=== PATIENT | female | born 1980 | race Caucasian/White ===

== ENCOUNTER 2016-03-26 16:37 | Emergency (ER) | END 2016-03-26 21:15 | disposition home or self-care (01) | DX: S69.92XA Unspecified injury of left wrist, hand and finger(s), initial encounter (principal); I10 Essential (primary) hypertension; E11.9 Type 2 diabetes mellitus without complications; W18.2XXA Fall in (into) shower or empty bathtub, initial encounter; Y92.9 Unspecified place or not applicable; Z79.4 Long term (current) use of insulin | CPT/HCPCS: 29125; 73110; 73130; Z7502 ==

== ENCOUNTER 2016-05-17 09:02 | Emergency (ER) | payer BC ==
[~2016-05-17] VITALS: Wt 61.0 kg
[~2016-05-17 09:02] MED LIST: ACET325T33 PO; CIPR500T4 PO; CITA20TA11 PO; NAPR-260 PO; NOVO7030 SC
[2016-05-17] MEDS ORDERED: ONDANSETRON 4 MG INJ IV STA (09:35)
[2016-05-17] MEDS ORDERED: FAMOTIDINE 20 MG INJ IV STA (09:35)
[2016-05-17] MEDS ORDERED: SOD CHLORIDE 0.9% 1,000 ML IV STA (09:35)
[2016-05-17 10:00] LABS: ADD SCAN DIFF NO
[2016-05-17] MEDS ORDERED: DICYCLOMINE 10 MG CAP PO ONE (10:00)
[2016-05-17 10:03] LABS: BASOPHILS % 0.4 % (0.0-2.0); EOSINOPHILS # 0.1 10^3/ul (0.0-0.5); EOSINOPHILS % 1.2 % (0.0-7.0); HEMATOCRIT 36.1 % (37.0-47.0); HEMOGLOBIN 12.6 g/dl (12.0-16.0); LYMPHOCYTES # 1.8 10^3/ul (0.8-2.9); LYMPHOCYTES % 36.7 % (15.0-51.0); MEAN CORPUSCULAR HEMOGLOBIN 30.8 pg (29.0-33.0); MEAN CORPUSCULAR HGB CONC 34.9 g/dl (32.0-37.0); MEAN CORPUSCULAR VOLUME 88.3 fl (82.0-101.0); MEAN PLATELET VOLUME 9.2 fl (7.4-10.4); MONOCYTE # 0.5 10^3/ul (0.3-0.9); MONOCYTES % 9.8 % (0.0-11.0); NEUTROPHIL # 2.5 10^3/ul (1.6-7.5); NEUTROPHILS % 50.3 % (39.0-77.0); PLATELET COUNT 130 10^3/UL (140-415); RED BLOOD COUNT 4.09 10^6/ul (4.20-5.40); RED CELL DISTRIBUTION WIDTH 13.1 % (11.5-14.5)
[2016-05-17 10:06] LABS: ADD UMIC YES; URINE BILIRUBIN (Dip) NEGATIVE (NEGATIVE); URINE BLOOD (Dip) 2+ (NEGATIVE); URINE COLOR DK. BROWN (YELLOW); URINE GLUCOSE (Dip) >=1000 % (NEGATIVE); URINE KETONES (Dip) NEGATIVE (NEGATIVE); URINE LEUKOCYTE ESTERASE (Dip) NEGATIVE (NEGATIVE); URINE NITRITE (Dip) NEGATIVE (NEGATIVE); URINE TOTAL PROTEIN (Dip) TRACE (NEGATIVE); URINE UROBILINOGEN (Dip) 4.0 E.U./dL (0.1-1.0)
[2016-05-17 10:13] LABS: ALBUMIN 3.8 g/dl (3.3-4.9)
[2016-05-17 10:14] LABS: POTASSIUM 4.2 mmol/L (3.5-5.1)
[2016-05-17 10:16] LABS: ALBUMIN/GLOBULIN RATIO 1.65; BILIRUBIN,INDIRECT 0.9 mg/dl (0-1.1); BILIRUBIN,TOTAL 0.9 mg/dl (0.2-1.3); CREATININE 0.47 mg/dl (0.44-1.00); TOTAL PROTEIN 6.1 g/dl (6.1-8.1)
[2016-05-17 10:17] LABS: CALCIUM 8.6 mg/dl (8.4-10.2)
[2016-05-17 10:26] LABS: BACTERIA,URINE MODERATE
--- NOTE | 2016-05-17 11:03 | RADRPT ---
PROCEDURE: CT Abdomen and Pelvis without intravenous contrast. CLINICAL INDICATION: Abdominal Pain. TECHNIQUE: CT scan of the abdomen and pelvis without intravenous contrast was performed on a multi -slice CT scanner. Coronal and sagittal reformatted images were obtained from the axial source image s. Images were reviewed on a high-resolution PACS workstation. Total DLP = 1243.4 mGy-cm. CTDIvol = or 22.0 mGy. One or more of the following dose reduction techniques were used: Automated exposure control. Adjustment of the mA and/or kV according to patient size. Use of iterative reconstruction technique. COMPARISON: 10/13/2015 FINDINGS: CT abdomen and pelvis: The lung bases are clear. The heart size is normal in size. The liver is normal in size and fatty in density without focal mass or intrahepatic biliary dilatation. The spleen is normal in size and homogeneous in density. The pancreas as visualized is normal. The gallbladder has been removed. The adrenal glands are normal. The kidneys are symmetrically unremarkable. No urolithiasis, obstru ctive uropathy, or solid mass lesion is seen. The stomach is partially collapsed, but is grossly unremarkable. The small bowels are unremarkable. The colon and rectum are normal. The appendix is normal. There is no evidence of appendicitis or di verticulitis. The pelvic organs are normal. The bladder is decompressed. There is no abdominal or pe lvic adenopathy, free fluid, free air, mass or mesenteric inflammation. The aorta is normal in caliber and course. The osseous structures are intact. No osteolytic or osteo blastic lesions are identified. The soft tissues are within normal limits. Lack of IV and oral con trast limits sensitivity of exam. IMPRESSION: 1. Hepatic steatosis. 2. Status post cholecystectomy. 3. Otherwise unremarkable noncontrast CT abdomen and pelvis without acute pathology identified. RPTAT: VV .Ayo Barton MD, MD Date Time Electronically viewed and signed by .Ayo Barton MD, on 05/17/2016 11:03 .L/
[2016-05-17] MEDS ORDERED: ONDA-43 PO (11:09)
[2016-05-17] MEDS ORDERED: LOPE2CAP PO (11:10)
[2016-05-17] MEDS ORDERED: DICY10CA60 PO (11:10)
--- NOTE | 2016-05-17 11:18 | ERD ---
ER Documentation Chief Complaint Date/Time DATE: 05/17/16 TIME: 11:15 Chief Complaint ABD PAIN X 3 DAYS HPI This is a 36-year-old female presents to the ER with epigastric pain for the last 3 days. Patient has also had nausea vomiting and diarrhea. She does admit to decreased appetite. Patient admits to chills however denies fevers. Patient has not traveled anywhere. She has not eaten anything different. She is able to drink fluids. ROS 12 point review of systems was done, all negative except per HPI. Medications Home Meds Active Scripts Loperamide Hcl* (Imodium*) 2 Mg Capsule, 2 MG PO .AFTER EA LOOSE BM Y for DIARRHEA for 3 Days, #10 TAB Prov:PACO PAYTON 05/17/16 Dicyclomine Hcl* (Bentyl*) 10 Mg Capsule, 10 MG PO QID for 5 Days, CAP Prov:PACO PAYTON 05/17/16 Ondansetron Hcl* (Zofran*) 4 Mg Tab, 4 MG PO Q4H Y for NAUSEA AND OR VOMITING, # 15 TAB Prov:PACO PAYTON 05/17/16 Naproxen* (Naprosyn*) 500 Mg Tablet, 500 MG PO BID Y for PAIN AND/OR INFLAMMATION, #30 TAB Prov:MARIEL BRUNO PA-C 03/26/16 Naproxen* (Naprosyn*) 500 Mg Tablet, 500 MG PO BID Y for PAIN AND/OR INFLAMMATION, #30 TAB Prov:MARIEL BRUNO PA-C 02/18/16 Acetaminophen* (Tylenol*) 325 Mg Tablet, 2 TAB PO Q8 Y for PAIN AND OR ELEVATED TEMP, #20 TAB Prov:MIRIAN ENRIQUEZ PA-C 10/13/15 Ciprofloxacin Hcl* (Ciprofloxacin Hcl*) 500 Mg Tablet, 500 MG PO BID for 7 Days , TAB Prov:MIRIAN ENRIQUEZ PA-C 10/13/15 Reported Medications Insulin Isophan/Regular (Humulin 70/30) 100 Units/Ml Susp, 40 UNIT SC BID, EA 08/05/15 Citalopram Hydrobromide* (Celexa*) 20 Mg Tablet, 20 MG PO DAILY, #30 TAB 08/05/15 Allergies Allergies: Coded Allergies: Penicillins (Verified Allergy, Mild, RASH, 05/17/16) PMhx/Soc History of Surgery: Yes (abdominal cyst removal, GALLBLADDER SURGERY ) Anesthesia Reaction: No Hx Neurological Disorder: No Hx Respiratory Disorders: No Hx Cardiac Disorders: Yes (HTN) Hx Psychiatric Problems: Yes (DEPRESSION ) Hx Miscellaneous Medical Probl: Yes (DM II) Hx Alcohol Use: No Hx Substance Use: No Hx Tobacco Use: No Smoking Status: Never smoker Physical Exam Vitals Vital Signs Date Time Temp Pulse Resp B/P Pulse Ox O2 Delivery O2 Flow Rate FiO2 05/17/16 09:06 98.0 88 18 116/64 99 Physical Exam GENERAL: The patient is well-developed, well-nourished, in no acute distress. HEENT: Atraumatic. RESPIRATORY: Clear to auscultation bilaterally. There are no rales, wheezes or rhonchi. There is no inspiratory stridor or retractions. No flaring/retractions. HEART: Regular rate and rhythm. No murmurs, clicks, rubs or gallops. ABDOMEN: Soft, nontender, nondistended. Active bowel sounds in all 4 quadrants. No rebounding or guarding. Negative McBurney point tenderness. NEUROLOGIC: Alert and oriented. SKIN: There is no rash. The skin is warm and dry. Normal capillary refill. Result Diagram: 05/17/16 0940 05/17/16 0940 Results 24 hrs Laboratory Tests Test 05/17/16 09:40 White Blood Count 5.010^3/ul Red Blood Count 4.0910^6/ul Hemoglobin 12.6g/dl Hematocrit 36.1% Mean Corpuscular Volume 88.3fl Mean Corpuscular Hemoglobin 30.8pg Mean Corpuscular Hemoglobin Concent 34.9g/dl Red Cell Distribution Width 13.1% Platelet Count 23643^3/UL Mean Platelet Volume 9.2fl Neutrophils % 50.3% Lymphocytes % 36.7% Monocytes % 9.8% Eosinophils % 1.2% Basophils % 0.4% Nucleated Red Blood Cells % 0.0/100WBC Neutrophils # 2.510^3/ul Lymphocytes # 1.810^3/ul Monocytes # 0.510^3/ul Eosinophils # 0.110^3/ul Basophils # 0.010^3/ul Nucleated Red Blood Cells # 0.010^3/ul Urine Color DK. BROWN Urine Clarity SLIGHTLY CLOUDY Urine pH 6.0 Urine Specific [place] 1.020 Urine Ketones NEGATIVE Urine Nitrite NEGATIVE Urine Bilirubin NEGATIVE Urine Urobilinogen 4.0 E.U./dL Urine Leukocyte Esterase NEGATIVE Urine Microscopic RBC 5-10/HPF Urine Microscopic WBC 10-25/HPF Urine Epithelial Cells FEW Urine Bacteria MODERATE Urine Hemoglobin 2+ Urine Glucose >=1000% Urine Total Protein TRACE Sodium Level 140mmol/L Potassium Level 4.2mmol/L Chloride Level 101mmol/L Carbon Dioxide Level 29mmol/L Anion Gap 14 Blood Urea Nitrogen 11mg/dl Creatinine 0.47mg/dl Glucose Level 298mg/dl Calcium Level 8.6mg/dl Total Bilirubin 0.9mg/dl Direct Bilirubin 0.00mg/dl Indirect Bilirubin 0.9mg/dl Aspartate Amino Transf (AST/SGOT) 75IU/L Alanine Aminotransferase (ALT/SGPT) 159IU/L Alkaline Phosphatase 95IU/L Total Protein 6.1g/dl Albumin 3.8g/dl Globulin 2.30g/dl Albumin/Globulin Ratio 1.65 Lipase 101U/L Current Medications Medications (Trade) Dose Ordered Sig/Abel Route PRN Reason Start Time Stop Time Status Last Admin Dose Admin Sodium Chloride (NS) 1,000 ml @ 1,000 mls/hr Q1H STAT IV 05/17/16 09:35 05/17/16 10:34 DC 05/17/16 09:48 Ondansetron HCl (Zofran Inj) 4 mg ONCE STAT IV 05/17/16 09:35 05/17/16 09:37 DC 05/17/16 09:49 Famotidine (Pepcid Iv) 20 mg ONCE STAT IV 05/17/16 09:35 05/17/16 09:37 DC 05/17/16 09:48 Dicyclomine HCl (Bentyl) 20 mg ONCE ONCE PO 05/17/16 10:00 05/17/16 10:01 DC 05/17/16 09:49 Procedures/MDM Differential Diagnosis: GERD, gastritis, peptic ulcer disease, pancreatitis, cholecystitis, choledocholithiasis, biliary colic, cholangitis, [id number] , ACS/[place], Pnuemonia. This is a 36-year-old female presents to the ER with nausea vomiting and diarrhea this is likely viral in etiology. Patient is not dehydrated she does not have any electrolyte abnormalities and is afebrile. Suspicion for gallbladder disease is low. Patient already had a cholecystectomy. Her CT scan is negative for any other intra-abdominal emergency. Patient will be sent home with Lupillo Tinoco Bentyl. She is to follow-up with her primary care doctor within 1-2 days or return to ER sooner if symptoms worsen my medical decision making was shared with the patient she understands and agrees with plan.. Departure Diagnosis: Primary Impression: Nausea vomiting and diarrhea Condition: Stable Patient Instructions: Vomiting And Diarrhea, Nonspecific (Adult) Additional Instructions: Call your primary care doctor TOMORROW for an appointment during the next 1-2 days.See the doctor sooner or return here if your condition worsens before your appointment time. PACO PAYTON May 17, 2016 11:18
[2016-05-17 11:32] VITALS: BP 122/66; PULSE 78; RESP 18; TEMP 98
== END 2016-05-17 11:33 | disposition home or self-care (01) ==
LOC: FTE 09:02
DX: R11.2 Nausea with vomiting, unspecified (principal); R19.7 Diarrhea, unspecified; I10 Essential (primary) hypertension; E11.9 Type 2 diabetes mellitus without complications; Z79.4 Long term (current) use of insulin
CPT/HCPCS: 36415; 74176; 80053; 81001; 81003; 83690; 85025; 96361; 96374; 96375; J2405; J7030; Z7502; Z7610

== ENCOUNTER 2016-06-27 23:29 | Emergency (ER) | payer BC ==
[~2016-06-27] VITALS: Ht 154.9 cm; Wt 89.5 kg
[~2016-06-27 23:29] MED LIST changes: +DICY10CA60 PO; +LOPE2CAP PO; +ONDA-43 PO
[2016-06-27 23:32] VITALS: Ht 154.9 cm; Wt 89.5 kg
[2016-06-28] MEDS ORDERED: ALBUTEROL 0.083% (NEB) 2.5 MG/3 ML AMP HHN STA (01:17)
--- NOTE | 2016-06-28 01:17 | ERD ---
ER Documentation Chief Complaint Date/Time DATE: 06/28/16 TIME: 01:15 Chief Complaint FEVER, COUGH FLU-LIKE SX X 5 DAYS HPI This 36-year-old female presents to the emergency department today with cough fever and body aches, headache, and vomiting. Symptoms started 2 half weeks ago with a sore throat, patient was seen and treated by her primary care physician 5 days ago with azithromycin and cough syrup. Patient took full course of medication with minimal change of symptoms. Patient reports back pain , pain with breathing, vomiting after eating, nauseated, and tactile fever. Patient denies chest pain, shortness of breath, palpitations or dizziness. ROS All systems reviewed and are negative except as per history of present illness. Medications Home Meds Active Scripts Inhaler, Assist Devices (E-Z SPACER) 1 Each Spacer, 1 EACH MC, #1 Prov:CJ,BOBBY 06/28/16 Albuterol Sulfate* (Ventolin HFA*) 18 Gm Hfa.aer.ad, 2 PUFF INHALATION Q4H, #1 INHALER Prov:CJ,BOBBY 06/28/16 Nitrofurantoin Monohyd Macrocr* (Macrobid*) 100 Mg Capsr, 100 MG PO HS for 7 Days, CAP Prov:CJ,BOBBY 06/28/16 Loperamide Hcl* (Imodium*) 2 Mg Capsule, 2 MG PO .AFTER EA LOOSE BM Y for DIARRHEA for 3 Days, #10 TAB Prov:TATAPACO ADAN C 05/17/16 Dicyclomine Hcl* (Bentyl*) 10 Mg Capsule, 10 MG PO QID for 5 Days, CAP Prov:TATAPACO C 05/17/16 Ondansetron Hcl* (Zofran*) 4 Mg Tab, 4 MG PO Q4H Y for NAUSEA AND OR VOMITING, # 15 TAB Prov:TATAPACO ADAN C 05/17/16 Naproxen* (Naprosyn*) 500 Mg Tablet, 500 MG PO BID Y for PAIN AND/OR INFLAMMATION, #30 TAB Prov:MARIEL BRUNO PA-C 03/26/16 Naproxen* (Naprosyn*) 500 Mg Tablet, 500 MG PO BID Y for PAIN AND/OR INFLAMMATION, #30 TAB Prov:MARIEL BRUNOC 02/18/16 Acetaminophen* (Tylenol*) 325 Mg Tablet, 2 TAB PO Q8 Y for PAIN AND OR ELEVATED TEMP, #20 TAB Prov:MIRIAN ENRIQUEZ PA-C 10/13/15 Ciprofloxacin Hcl* (Ciprofloxacin Hcl*) 500 Mg Tablet, 500 MG PO BID for 7 Days , TAB Prov:MIRIAN ENRIQUEZ PA-C 10/13/15 Reported Medications Insulin Isophan/Regular (Humulin 70/30) 100 Units/Ml Susp, 40 UNIT SC BID, EA 08/05/15 Citalopram Hydrobromide* (Celexa*) 20 Mg Tablet, 20 MG PO DAILY, #30 TAB 08/05/15 Allergies Allergies: Coded Allergies: Penicillins (Verified Allergy, Mild, RASH, 05/17/16) PMhx/Soc History of Surgery: Yes (abdominal cyst removal, GALLBLADDER SURGERY ) Anesthesia Reaction: No Hx Neurological Disorder: No Hx Respiratory Disorders: No Hx Cardiac Disorders: Yes (HTN) Hx Psychiatric Problems: Yes (DEPRESSION ) Hx Miscellaneous Medical Probl: Yes (DM II) Hx Alcohol Use: No Hx Substance Use: No Hx Tobacco Use: No Smoking Status: Never smoker Physical Exam Vitals Vital Signs Date Time Temp Pulse Resp B/P Pulse Ox O2 Delivery O2 Flow Rate FiO2 06/28/16 01:52 88 20 97 21 06/27/16 23:32 98.9 83 18 112/65 99 Vitals stable, triage notes reviewed Physical Exam Const: Obese, no acute distress Head: Atraumatic Eyes: Normal Conjunctiva, PERRLA, EOMI ENT: Normal External Ears, Nose and Mouth. Mucous membranes moist Neck: Resp: Chest rise and fall symmetrically, scattered clearing rhonchi posteriorly. No egophony, rales or wheezes Cardio: Abd: Abdomen obese, pelvic tenderness, no CVA tenderness Skin: Back: No midline or flank tenderness Ext: Neur: Awake and alert Psych: Normal Mood and Affect Results 24 hrs Laboratory Tests Test 06/28/16 01:52 Bedside Urine pH (LAB) 5.5 Bedside Urine Protein (LAB) 2+ Bedside Urine Glucose (UA) 0.1% Bedside Urine Ketones (LAB) Trace Bedside Urine Blood Trace-lysed Bedside Urine Nitrite (LAB) Negative Bedside Urine Leukocyte Esterase (L 3+ Current Medications Medications (Trade) Dose Ordered Sig/Abel Route PRN Reason Start Time Stop Time Status Last Admin Dose Admin Albuterol (Proventil 0.083% (Neb)) 5 mg ONCE STAT HHN 06/28/16 01:17 06/28/16 01:20 DC 06/28/16 01:52 Ibuprofen (Motrin) 400 mg ONCE ONCE PO 06/28/16 01:30 06/28/16 01:31 DC 06/28/16 01:55 Procedures/MDM PROCEDURE: Chest. CLINICAL INDICATION: Cough. TECHNIQUE: PA and Lateral views of the chest were obtained. COMPARISON: 03/15/2015. FINDINGS: The cardiac silhouette is within normal limits. The aortic arch is unremarkable. There is no focal consolidation, vascular congestion or pleural effusion. There is no pneumothorax. The osseous structures are grossly intact. IMPRESSION: No acute cardiopulmonary process identified. .Colton Reyes MD, MD Date Time Electronically viewed and signed by .Colton Reyes MD, on 06/28/2016 02:16 This 36-year-old female presents to the emergency department today with complaints of nausea, vomiting, diarrhea, patient reports symptoms 2-1/2 weeks , had seen her primary care physician was treated for a bronchial infection with azithromycin and cough syrup 5 days ago, patient reports symptoms continue. Patient also reports abdominal pain, flank pain, vomiting after eating intermittently, tactile fever. Pneumonia suspected, chest x-ray negative for consolidation, infiltrate, cardiac marking is normal. No pneumothorax. Urinalysis positive for urinary tract infection with leukocytosis , and microscopic hematuria. Patient will be treated for a urinary tract infection with Macrobid, and Ventolin MDI with spacer every 4 hours as needed cough. Increase fluids, increase rest. Patient instructed to return to emergency room for fever, dysuria, symptoms not improving with medication. I feel the patient is stable for discharge with outpatient management and follow- up with primary care physician. I have discussed results, examination findings , the treatment plan with the patient and family present prior to discharge. Indications for emergent reevaluation, side effects of medication were also discussed. All questions were answered. Patient verbalizes understanding and agrees with plan of care. Departure Diagnosis: Primary Impression: UTI (urinary tract infection) Urinary tract infection type: site unspecified Hematuria presence: with hematuria Qualified Code: N39.0 - Urinary tract infection with hematuria, site unspecified Additional Impression: Cough in adult Condition: Fair Patient Instructions: Understanding Urinary Tract Infections (UTIs) Additional Instructions: Thank you for for coming to [facility] for your care today. Please ask your nurse or provider if you have questions about your care today and do not leave until all your questions have been answered. Please use any medications given as directed and follow-up with your doctor (or the doctor you were referred to) in the next 2-3 days. If you do not have a primary care doctor you may follow up at the [facility] (listed below). You may also use motrin and tylenol as needed for fever and/or pain unless instructed otherwise by your provider or nurse. Indications for more urgent follow-up have been discussed, but you may return to the Emergency Department at ANY time for any worrisome or worsening symptoms. If you have abdominal pain, please know that no test or exam you received is perfect and you should follow up within 8 hours for continued pain. If you had any imaging studies today, such as an X-Ray or CT Scan, these studies will be reviewed later by a radiologist. You will be called if there are important findings that were not identified today, so make sure the contact information you provided at registration is correct. If you received any narcotic pain control medicine today, such as Vicodin, Morphine or Dilaudid, your coordination and judgment may be affected for a number of hours. Please do not drive or operate heavy machinery, and you may want someone to assist you at home. If you were given a prescription for narcotic medication, be aware that it is very addictive- use sparingly and only if necessary. BOBBY CORONA June 28, 2016 01:17
[2016-06-28] MEDS ORDERED: IBUPROFEN 200 MG TAB PO ONE (01:30)
[2016-06-28 01:51] LABS: URINE BLOOD (Dip) POC Trace-lysed (NEGATIVE)
--- NOTE | 2016-06-28 02:17 | RADRPT ---
PROCEDURE: Chest. CLINICAL INDICATION: Cough. TECHNIQUE: PA and Lateral views of the chest were obtained. COMPARISON: 03/15/2015. FINDINGS: The cardiac silhouette is within normal limits. The aortic arch is unremarkable. There is no focal c onsolidation, vascular congestion or pleural effusion. There is no pneumothorax. The osseous structu res are grossly intact. IMPRESSION: No acute cardiopulmonary process identified. .Colton Reyes MD, MD Date Time Electronically viewed and signed by .Colton Reyes MD, on 06/28/2016 02:16 .T/
[2016-06-28] MEDS ORDERED: NITR-58 PO (03:07)
[2016-06-28] MEDS ORDERED: ALBU18HF INHALATION (03:08)
[2016-06-28] MEDS ORDERED: INHA1SPA53 MC (03:08)
[2016-06-28 03:23] VITALS: BP 102/55; PULSE 85; RESP 18; TEMP 98.9
== END 2016-06-28 02:33 | disposition home or self-care (01) ==
LOC: FTE 23:29
DX: N39.0 Urinary tract infection, site not specified (principal); R05 Cough; I10 Essential (primary) hypertension; E11.9 Type 2 diabetes mellitus without complications; Z79.4 Long term (current) use of insulin
CPT/HCPCS: 71020; 81003; 94664; Z7502; Z7610

== ENCOUNTER 2017-06-13 16:25 | Emergency (ER) | END 2017-06-13 21:14 | disposition home or self-care (01) ==

== ENCOUNTER 2017-07-24 14:10 | Emergency (ER) | END 2017-07-24 15:35 | disposition home or self-care (01) ==

== ENCOUNTER 2018-06-29 12:41 | Emergency (ER) | payer OTHER ==
[~2018-06-29] VITALS: Wt 82.7 kg
[~2018-06-29 12:41] MED LIST changes: +ACET500C5 PO; +ALBU18HF INHALATION; +DICY10CA40 PO; -DICY10CA60 PO; +INHA1SPA53 MC; -NAPR-260 PO; +NAPR-985 PO; +NITR-58 PO; -ONDA-43 PO; +ONDA4TAB13 PO
[2018-06-29 13:18] VITALS: BP 139/83; PULSE 91; RESP 18
[2018-06-29] MEDS ORDERED: KETOROLAC 30 MG INJ IM STA (15:05)
[2018-06-29] MEDS ORDERED: traMADol 50 MG TAB PO ONE (15:30)
[2018-06-29] MEDS ORDERED: DOXY100T20 PO (16:43)
--- NOTE | 2018-06-29 19:48 | ERD ---
ER Documentation Chief Complaint Chief Complaint 'spider bite' x1.5 wks to L first metatars joint. no relief w bactrim cours HPI History of Present Illness: 38-year-old female with past medical history of diabetes coming in today due to complaint of a possible insect bite that occurred approximately 1.5 weeks ago. Infection is to the great toe of the left foot. Patient reports starting a course of antibiotics on 06/22/2017 called Bactri in which she completed the full 10-day course but has had no relief of the infection that she was diagnosed with. Denies fever, chills, malaise. Patient with history of diabetes. At home pharmacological/nonpharmacological treatment for symptoms: [place] at 7 AM Denies social concerns; Denies recent foreign travel ROS All systems reviewed and are negative except as per history of present illness. Medications Home Meds Active Scripts Doxycycline Hyclate* (Doxycycline Hyclate*) 100 Mg Tablet.dr, 100 MG PO BID for SKIN INFECTION for 10 Days, TAB Prov:SAMMY MURDOCK NP 06/29/18 Ciprofloxacin Hcl* (Ciprofloxacin Hcl*) 500 Mg Tablet, 500 MG PO BID for 10 Days, TAB Prov:BRIAN BUI PA-C 06/13/17 Acetaminophen* (Tylophen*) 500 Mg Capsule, 2 CAP PO Q8H PRN for PAIN AND OR ELEVATED TEMP, #20 CAP Prov:BIRAN BUI PA-C 06/13/17 Inhaler, Assist Devices (E-Z SPACER) 1 Each Spacer, 1 EACH MC, #1 Prov:CJ,BOBBY 06/28/16 Albuterol Sulfate* (Ventolin HFA*) 18 Gm Hfa.aer.ad, 2 PUFF INHALATION Q4H, #1 INHALER Prov:CJ,BOBBY 06/28/16 Nitrofurantoin Monohyd Macrocr* (Macrobid*) 100 Mg Capsr, 100 MG PO HS for 7 Days, CAP Prov:CJ,BOBBY 06/28/16 Loperamide Hcl* (Imodium*) 2 Mg Capsule, 2 MG PO .AFTER EA LOOSE BM PRN for DIARRHEA for 3 Days, #10 TAB Prov:PACO PAYTON 05/17/16 Dicyclomine HCl (Dicyclomine HCl) 10 Mg Capsule, 10 MG PO QID for 5 Days, CAP Prov:PACO PAYTON 05/17/16 Ondansetron Hcl* (Zofran*) 4 Mg Tab, 4 MG PO Q4H PRN for NAUSEA AND OR VOMITING, #15 TAB Prov:PACO PAYTON 05/17/16 Naproxen* (Naprosyn*) 500 Mg Tablet, 500 MG PO BID PRN for PAIN AND/OR INFLAMMATION, #30 TAB Prov:MARIEL BRUNO PA-C 03/26/16 Naproxen* (Naprosyn*) 500 Mg Tablet, 500 MG PO BID PRN for PAIN AND/OR INFLAMMATION, #30 TAB Prov:MARIEL BRUNO PA-C 02/18/16 Acetaminophen* (Tylenol*) 325 Mg Tablet, 2 TAB PO Q8 PRN for PAIN AND OR ELEVATED TEMP, #20 TAB Prov:MIRIAN ENRIQUEZ PA-C 10/13/15 Ciprofloxacin Hcl* (Ciprofloxacin Hcl*) 500 Mg Tablet, 500 MG PO BID for 7 Days, TAB Prov:MIRIAN ENRIQUEZ PA-C 10/13/15 Reported Medications Insulin Isophan/Regular (Humulin 70/30) 100 Units/Ml Susp, 40 UNIT SC BID, EA 08/05/15 Citalopram Hydrobromide* (Celexa*) 20 Mg Tablet, 20 MG PO DAILY, #30 TAB 08/05/15 Allergies Allergies: Coded Allergies: Penicillins (Verified Allergy, Mild, RASH, 05/17/16) PMhx/Soc History of Surgery: Yes (abdominal cyst removal, GALLBLADDER SURGERY ) Anesthesia Reaction: No Hx Neurological Disorder: No Hx Respiratory Disorders: No Hx Cardiac Disorders: Yes (HTN) Hx Psychiatric Problems: Yes (DEPRESSION ) Hx Miscellaneous Medical Probl: Yes (DM II) Hx Alcohol Use: No Hx Substance Use: No Hx Tobacco Use: No Smoking Status: Never smoker FmHx Family History: diabetes, coronary disease Physical Exam Vitals Vital Signs Date Temp Pulse Resp B/P (MAP) Pulse Ox O2 O2 Flow FiO2 Time Delivery Rate 06/29/18 98.6 91 18 139/83 98 13:18 (101) Physical Exam Const: No acute distress Head: Atraumatic Eyes: Normal Conjunctiva ENT: Normal External Ears, Nose and Mouth. Neck: Full range of motion. No meningismus. Resp: Clear to auscultation bilaterally Cardio: Regular rate and rhythm, no murmurs Abd: Soft, non tender, non distended. Normal bowel sounds Skin: No petechiae or rashes Back: No midline or flank tenderness Ext: No cyanosis, or edema; abscess noted to the metatarsal joint of left foot, positive erythema, mild warmth, positive induration, negative fluctuant Neur: Awake and alert Psych: Normal Mood and Affect Results 24 hrs Laboratory Tests Test 06/29/18 15:15 POC Beta HCG, Qualitative NEGATIVE Current Medications Medications Dose Sig/Abel Start Time Status Last (Trade) Ordered Route PRN Stop Time Admin Dose Reason Admin Ketorolac 30 mg ONCE STAT 06/29/18 DC 06/29/18 Tromethamine IM 15:05 06/29/18 15:33 (Toradol) 15:08 Tramadol 50 mg ONCE ONCE 06/29/18 DC 06/29/18 HCl PO 15:30 06/29/18 15:29 (Ultram) 15:31 Procedures/MDM ED course includes a thorough examination and history. Medications: Ketorolac, tramadol Imaging: Foot x-ray rule out osteomyelitis possible findings. Labs: Urine Low suspicion for life-threatening medical emergency. Low suspicion for orthopedic emergency that requires hospitalization or immediate surgical intervention. Low suspicion for infectious process that requires hospitalization for IV/IM antibiotics. Otherwise healthy patient presenting with constellation of symptoms likely representing uncomplicated [x] as characterized by history, physical exam findings, radiology findings, lab findings. Urinalysis negative for . X-ray results are showing: IMPRESSION: 1. No acute fracture or dislocation. 2. Mild focal soft tissue swelling in the medial aspect of the foot. RPTAT: HH .Joaquim Chopra MD, MD Patient reassessment: Patient with decrease in pain after medication administration. Patient hemodynamically stable, afebrile without use of antipyretics. Disposition given. He respiratory distress, otherwise relatively well appearing and nontoxic. Patient educated on diagnoses, prescriptions, follow-up care, return precautions. Strict return precautions given for worsening condition; questions answered discharge. Disposition for discharge with followup in 2 patient reassessment days with PCP/clinic. Departure Diagnosis: Primary Impression: Bite wound Additional Impressions: Abscess Abscess of great toe of left foot Condition: Stable Patient Instructions: Abscess, Antiobiotic Treatment Only Referrals: [facility] YOU HAVE RECEIVED A MEDICAL SCREENING EXAM AND THE RESULTS INDICATE THAT YOU DO NOT HAVE A CONDITION THAT REQUIRES URGENT TREATMENT IN THE EMERGENCY DEPARTMENT. FURTHER EVALUATION AND TREATMENT OF YOUR CONDITION CAN WAIT UNTIL YOU ARE SEEN IN YOUR DOCTORS OFFICE WITHIN THE NEXT 1-2 DAYS. IT IS YOUR RESPONSIBILITY TO MAKE AN APPOINTMENT FOR FOLOW-UP CARE. IF YOU HAVE A PRIMARY DOCTOR --you should call your primary doctor and schedule an appointment IF YOU DO NOT HAVE A PRIMARY DOCTOR YOU CAN CALL OUR PHYSICIAN REFERRAL HOTLINE AT IF YOU CAN NOT AFFORD TO SEE A PHYSICIAN YOU CAN CHOSE FROM THE FOLLOWING [facility] [address] [facility] [address] [facility] [address] [facility] [address] [facility] [facility] [address] [facility]. [facility] [address] [facility]. [facility] YOU HAVE RECEIVED A MEDICAL SCREENING EXAM AND THE RESULTS INDICATE THAT YOU DO NOT HAVE A CONDITION THAT REQUIRES URGENT TREATMENT IN THE EMERGENCY DEPARTMENT. FURTHER EVALUATION AND TREATMENT OF YOUR CONDITION CAN WAIT UNTIL YOU ARE SEEN IN YOUR DOCTORS OFFICE WITHIN THE NEXT 1-2 DAYS. IT IS YOUR RESPONSIBILITY TO MAKE AN APPOINTMENT FOR FOLOW-UP CARE. IF YOU HAVE A PRIMARY DOCTOR --you should call your primary doctor and schedule and appointment IF YOU DO NOT HAVE A PRIMARY DOCTOR YOU CAN CALL OUR PHYSICIAN REFERRAL HOTLINE AT . IF YOU CAN NOT AFFORD TO SEE A PHYSICIAN YOU CAN CHOSE FROM THE FOLLOWING [facility]: [facility] [address] [place] [address] [facility] [address] [place] [address] [facility] [address] [place] [address] Additional Instructions: Thank you very much for allowing us to participate in your care. Your health and safety is our top priority at [facility]. It is important to read all discharge instructions and education provided in your discharge packet. *You must follow-up with your primary care doctor 3-4 days. Your antibiotic may need to be changed if the infection is not getting any better by your appointment in 3 to 4 days. There are no signs of infection on your x-ray.* Call your primary care doctor TOMORROW for an appointment during the next 2-4 days and bring all the information and medications prescribed. Have prescriptions filled and follow precisely the directions on the label. If the symptoms get worse and your provider is unavailable, return to the Emergency Department immediately. SAMMY MURDOCK NP June 29, 2018 19:48
== END 2018-06-29 17:03 | disposition home or self-care (01) ==
LOC: FTE 12:41
DX: S90.462A Insect bite (nonvenomous), left great toe, initial encounter (principal); L02.612 Cutaneous abscess of left foot; I10 Essential (primary) hypertension; E11.9 Type 2 diabetes mellitus without complications; W57.XXXA Bitten or stung by nonvenomous insect and other nonvenomous arthropods, initial encounter; Y92.9 Unspecified place or not applicable; Z79.4 Long term (current) use of insulin
CPT/HCPCS: 73630; 81025; 96372; J1885; Z7502; Z7610